=== PATIENT | female | born 1965 | race Native Hawaiian/Other Pacific Islander ===

== ENCOUNTER 2022-01-17 09:22 | Outpatient (CLI) | payer OTHER ==
[~2022-01-17] VITALS: Ht 144.8 cm; Wt 72.1 kg
[~2022-01-17 09:22] MED LIST: FLEXERIL5 MG PO; FLONASE NASAL S16 GM NS; FORTAMET500 M1 PO; HYZAAR 50-12.1 UDTAB; NEURONTIN300 MG/CAP PO; SINGULAIR10 MG PO; ZOCOR 40MG40 MG PO; ZYRTEC 10MG10 MG PO
[2022-01-17] MEDS ORDERED: PROTONIX 40MG T40 MG PO (10:15)
[2022-01-17] MEDS ORDERED: INDOCIN50 MG PO (10:16)
[2022-01-17] MEDS ORDERED: ATARAX 25MG25 MG/TAB PO (10:17)
[2022-01-17] MEDS ORDERED: TOPROL XL 25MG25 MG PO (10:17)
[2022-01-17] MEDS ORDERED: ZYLOPRIM 100MG100 MG PO (10:18)
[2022-01-17] MEDS ORDERED: ZYLOPRIM 300MG300 MG PO (10:19)
[2022-01-17] MEDS ORDERED: LIPITOR 40MG TA40 MG PO (10:20)
[2022-01-17] MEDS ORDERED: TRULICITY1.5 MG/0.5 SQ (10:21)
[2022-01-17 10:22] VITALS: BP 135/90; PULSE 81; TEMP 97.5
--- NOTE | 2022-01-17 12:28 | NUR ---
Pt is dressed and ready to go. Dr. Hdz has discussed discharge plan with pt, and I reviewed fu and dc instructions with pt and josé miguel. Pt and deny any concerns at time of departure. gauze dressing to loop insertion site is clean dry and intact at time of departure. Pt is amb with steady gait with to exit.
== END 2022-01-17 14:38 | disposition home or self-care (01) ==
LOC: COL.CAR 09:22
DX: G45.9 Transient cerebral ischemic attack, unspecified (principal)
CPT/HCPCS: 27886; C1764

== ENCOUNTER 2023-05-21 09:35 | Day surgery (SDC) | payer OTHER ==
[2023-05-21] VITALS (12 sets, daily range): BP systolic 96–133; BP diastolic 62–82; PULSE 62–78; TEMP 98
[~2023-05-21] VITALS: Ht 147.3 cm; Wt 67.9 kg
[~2023-05-21 09:35] MED LIST changes: +ATARAX 25MG25 MG/TAB PO; +BENTYL 10MG10 MG/CAP PO; +CAPSAICIN60 GM TP; +CEFAZOLIN SODIUM2 GM IV; +CEFAZOLIN1 G1 IV; +CEPHALEXIN500 M1 PO; +COZAAR 25MG25 MG/TAB PO; +COZAAR 50MG50 MG/TAB PO; +CRESTOR20 MG PO; +DESOWEN0.051 TP; +DESYREL 50MG50 MG PO; +EPI-PEN JR0.5 MG/ML IM; +INDOCIN50 MG PO; +LEXAPRO 5MG5 MG PO; +LIPITOR 40MG TA40 MG PO; +MOUNJARO5 MG/0.5 M SQ; +NORVASC 5MG5 MG/TAB PO; +PROTONIX 40MG T40 MG PO; +ROBAXIN 50500 MG/TAB PO; +TEMOVATE0.05% TP; +TOPROL XL 25MG25 MG PO; +TRULICITY1.5 MG/0.5 SQ; +TYLENOL 325MG325 MG PO; +VOLTAREN GEL 1%1 TU TP; +ZYLOPRIM 100MG100 MG PO; +ZYLOPRIM 300MG300 MG PO
[2023-05-21 10:14] LABS: HEMATOCRIT 35.7 % (37.0-47.0); HEMOGLOBIN 10.8 g/dl (12.5-16.0); MEAN CELL VOLUME 73 fl (80.0-100.0); MEAN CORPUSCULAR HEMOGLOBIN 22 pg (27-31); MEAN CORPUSCULAR HGB CONC 30 g/dl (33.0-37.0); PLATELET COUNT 206 K/mm3 (130-400); RED BLOOD COUNT 4.87 M/mm3 (4.10-5.30); REDCELL DISTRIBUTION WIDTH-CV 17.9 % (11.5-14.5)
[2023-05-21 10:20] LABS: INR 1.1 (0.8-3.0); PROTHROMBIN TIME 11.9 SECONDS (9.7-12.8)
[2023-05-21 10:29] LABS: CALCIUM 9.7 mg/dL (8.4-10.2); CREATININE, serum 0.89 mg/dL (0.57-1.11); POTASSIUM 3.8 mmol/L (3.5-4.5)
[2023-05-21] MEDS ORDERED: ASPIRIN 81M81 MG/TA2 PO (10:42)
--- NOTE | 2023-05-21 12:55 | NUR ---
Refer to [facility] report for procedural notes and sedation
--- NOTE | 2023-05-21 18:33 | NUR ---
Pt ambulated to [facility] scheduled for a pacemaker removal. Pt had a PICC line present at time of arrival.Labs drawn. Meds and HX reviewed. Consent form for the pacemaker removal signed. Pt went to procedure and came back to [facility] post procedure to recover. Pt was sleepy at time of arrival. Offered something to eat and drink, pt accepted a muffin and sprite. Once pt started to wake they reported some tenderness at procedure site when the dressing was touched. An ice pack was applied. chemical laboratory technician nurse assessed the site and said it looked fine. Notifed Brett TABLET MAKING MACHINE OPERATOR HELPER with cardiology about getting a pain med. Tylenol was ordered. Pt got tylenol and tenderness was reassessed about 45 minutes after administration. Pt reported that the tenderness was better with ice and tylenol. Dressing throughout the recovery was clean, dry, and intact. Pt was also ordered a tray of food once they woke up. Pt recoverd in [facility] for about 4 hrs. At time of discharge the pt stated they were still feeling good. Discharge education and information given to the pt. No questions at this time. Dressing checked again before discharging, still clean, dry and intact. Pt exited the unit by wheelchair to husbands car.
== END 2023-05-21 18:28 | disposition home or self-care (01) ==
LOC: COL.CAR 09:35
PROVIDERS: Internal Medicine Cardiovascular Disease
DX: R78.81 Bacteremia (principal)
CPT/HCPCS: J0690; J2250; J3010